=== PATIENT | male | born 1980 | race American Indian/Alaskan Native ===

== ENCOUNTER 2017-08-24 15:40 | Emergency (ER) | payer MEDICAID, OTHER ==
[2017-08-24 15:41] VITALS: BMI 22.3
[2017-08-24 15:57] VITALS: BP 126/84; PULSE 97; RESP 16; TEMP 98.6; O2SAT 100
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
== END 2017-08-24 18:00 | disposition home or self-care (01) ==
LOC: ED 15:40
DX: Z48.02 Encounter for removal of sutures (principal)

== ENCOUNTER 2018-01-26 21:04 | Emergency (ER) | payer OTHER ==
[2018-01-26 21:05] VITALS: BMI 22.3
[2018-01-26 21:14] VITALS: TEMP 98.1; O2SAT 100
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
[2018-01-27 00:03] VITALS: BP 118/78; PULSE 78; RESP 18
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
--- NOTE | 2018-01-27 09:55 | RAD ---
PROCEDURE: Radiographs of the left clavicle. HISTORY: pain r/o Fx. COMPARISON: None. FINDINGS: LEFT CLAVICLE: Acute fracture left clavicle. Major fracture fragments are anatomically aligned. JOINTS: Left acromioclavicular and glenohumeral joints are grossly unremarkable. SOFT TISSUES: Grossly unremarkable. OTHER FINDINGS: None. IMPRESSION: Acute left clavicular fracture. Concordant results with the preliminary interpretation rendered by the emergency department physician procedure.
== END 2018-01-27 00:02 | disposition home or self-care (01) ==
LOC: ED 21:04
DX: S02.81XA Fracture of other specified skull and facial bones, right side, initial encounter for closed fracture (principal); S42.022A Displaced fracture of shaft of left clavicle, initial encounter for closed fracture; Y04.0XXA Assault by unarmed brawl or fight, initial encounter; Y92.9 Unspecified place or not applicable
CPT/HCPCS: 70450; 73000; 73030; 96372; 99284; J1885

== ENCOUNTER 2018-02-14 16:42 | Emergency (ER) | payer MEDICAID, OTHER ==
[2018-02-14 16:43] VITALS: BMI 22.3
[2018-02-14 17:15] VITALS: RESP 18; TEMP 98; O2SAT 96
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
[2018-02-14 19:45] VITALS: BP 120/60; PULSE 89
--- NOTE | 2018-02-15 08:38 | RAD ---
PROCEDURE: Radiographs of the left clavicle. HISTORY: pain Hx. fracture COMPARISON: None. FINDINGS: LEFT CLAVICLE: There is a comminuted overlapping fracture of the mid left clavicle. JOINTS: Left acromioclavicular and glenohumeral joints are grossly unremarkable. SOFT TISSUES: Grossly unremarkable. OTHER FINDINGS: None. IMPRESSION: There is a comminuted overlapping fracture of the mid left clavicle.
== END 2018-02-14 19:40 | disposition home or self-care (01) ==
LOC: ED 16:42
DX: M25.512 Pain in left shoulder (principal); Z87.81 Personal history of (healed) traumatic fracture

== ENCOUNTER 2018-10-01 04:18 | Emergency (ER) | payer MEDICAID ==
[2018-10-01 04:22] VITALS: BMI 22.1
--- NOTE | 2018-10-01 04:48 | ED PDOC ---
Arrival/HPI - General Historian: Patient - History of Present Illness Narrative History of Present Illness (Text): 10/01/18 04:45 Samuel Pittman is a 38 year old male, whose past medical history includes alcohol abuse, who presents to the Emergency department brought in by EMS for alcohol intoxication tonight. Patient admits to drinking alcohol and states he also took Benadryl. Patient denies any fever, chills, chest pain, shortness of breath, nausea, vomiting, diarrhea, urinary symptoms, back pain, neck pain, headache, dizziness, or any other complaints. Symptom Onset: Gradual Symptom Course: Unchanged Activities at Onset: Light Context: Street <Goran Armstrong - Last Filed: 10/01/18 04:59> <Sam Suarez - Last Filed: 10/01/18 10:06> - General Chief Complaint: Cough, Cold, Congestion Time Seen by Provider: 10/01/18 04:37 Past Medical History - Provider Review Nursing Documentation Reviewed: Yes - Infectious Disease Hx of Infectious Diseases: None - Tetanus Immunization Tetanus Immunization: Up to Date - Past Medical History Past Medical History: No Previous - Cardiac Hx Hypertension: No - Pulmonary Hx Respiratory Disorders: No Hx Tuberculosis: No - Neurological Hx Neurological Disorder: No Hx Seizures: No - Hematological/Oncological Hx Cancer: No - Musculoskeletal/Rheumatological Hx Falls: No Other/Comment: skull fx. has plate in the skull. - Genitourinary/Gynecological Hx Sexually Transmitted Diseases: No - Psychiatric Hx Psychophysiologic Disorder: Yes Hx Anxiety: Yes Hx Bipolar Disorder: Yes Hx Depression: No Hx Substance Use: Yes (marijuana) - Past Surgical History Past Surgical History: No Previous - Surgical History Other/Comment: 2 plates on head - Anesthesia Hx Anesthesia: Yes Hx Anesthesia Reactions: No Hx Malignant Hyperthermia: No - Suicidal Assessment Feels Threatened In Home Enviroment: No <Goran Armstrong - Last Filed: 10/01/18 04:59> Family/Social History - Physician Review Nursing Documentation Reviewed: Yes Family/Social History: Unknown Family HX Smoking Status: Light Smoker < 10 Cigarettes Daily Hx Alcohol Use: Yes Hx Substance Use: Yes (marijuana) Substance used: marijuana Hx Substance Use Treatment: No <Goran Armstrong - Last Filed: 10/01/18 04:59> Allergies/Home Meds <Goran Armsrtong - Last Filed: 10/01/18 04:59> <ErickSam - Last Filed: 10/01/18 10:06> Allergies/Adverse Reactions: Allergies No Known Allergies Allergy (Verified 03/25/18 07:16) Review of Systems - Physician Review All systems were reviewed & negative as marked: Yes - Review of Systems Constitutional: Normal. absent: Fevers Eyes: Normal ENT: Normal Respiratory: Normal. absent: SOB, Cough Cardiovascular: Normal. absent: Chest Pain Gastrointestinal: Normal. absent: Abdominal Pain, Diarrhea, Nausea, Vomiting Genitourinary Male: Normal. absent: Dysuria, Frequency, Hematuria, Urinary Output Changes Musculoskeletal: Normal. absent: Back Pain, Neck Pain Skin: Normal Neurological: Normal Endocrine: Normal Hemo/Lymphatic: Normal Psychiatric: Normal <PattiGoran Filed: 10/01/18 04:59> Physical Exam Vital Signs Reviewed: Yes Vital Signs Temp Pulse Resp BP Pulse Ox 10/01/18 04:41 97.8 F 112 H 18 112/67 99 Temperature: Afebrile Blood Pressure: Normal Pulse: Regular Respiratory Rate: Normal Appearance: Positive for: Well-Appearing, Non-Toxic, Comfortable Pain Distress: None Mental Status: Positive for: Alert and Oriented X 3 - Systems Exam Head: Present: Atraumatic, Normocephalic Pupils: Present: PERRL Extroacular Muscles: Present: EOMI Conjunctiva: Present: Normal Mouth: Present: Moist Mucous Membranes Neck: Present: Normal Range of Motion Respiratory/Chest: Present: Clear to Auscultation, Good Air Exchange. No: Respiratory Distress, Accessory Muscle Use Cardiovascular: Present: Regular Rate and Rhythm, Normal S1, S2. No: Murmurs Abdomen: No: Tenderness, Distention, Peritoneal Signs Back: Present: Normal Inspection Upper Extremity: Present: Normal Inspection. No: Cyanosis, Edema Lower Extremity: Present: Normal Inspection. No: Edema Neurological: Present: GCS=15, CN II-XII Intact, Speech Normal Skin: Present: Warm, Dry, Normal Color. No: Rashes Psychiatric: Present: Alert, Oriented x 3, Normal Insight, Normal Concentration <PattiGoran Last Filed: 10/01/18 04:59> Vital Signs Temp Pulse Resp BP Pulse Ox 10/01/18 04:41 97.8 F 112 H 18 112/67 99 <Sam Suarez - Last Filed: 10/01/18 10:06> Medical Decision Making ED Course and Treatment: 10/01/18 04:45 Impression: 38 year old male brought in for alcohol intoxication. Plan: -- Reassess and disposition Progress Notes: <Goran Armstrong - Last Filed: 10/01/18 04:59> ED Course and Treatment: 10/01/18 09:22 Patient was turned over to me by , waiting for him to sober up. He is not yet ready for discharge. 10/01/18 10:05 Patient is awake and alert and up wandering about the emergency department. He is looking for his clothes and will take the light rail back to [place] <Sam Suarez - Last Filed: 10/01/18 10:06> - Scribe Statement The provider has reviewed the documentation as recorded by the [facility] [place] Lyn Provider Scribe Attestation: All medical record entries made by the Scribe were at my direction and personally dictated by me. I have reviewed the chart and agree that the record accurately reflects my personal performance of the history, physical exam, medical decision making, and the department course for this patient. I have also personally directed, reviewed, and agree with the discharge instructions and disposition. <Goran Armstrong - Last Filed: 10/01/18 04:59> Disposition/Present on Arrival - Present on Arrival History of DVT/PE: No History of Uncontrolled Diabetes: No Urinary Catheter: No History of Decub. Ulcer: No History Surgical Site Infection Following: None <Goran Armstrong - Last Filed: 10/01/18 04:59> - Present on Arrival Any Indicators Present on Arrival: No History of DVT/PE: No History of Uncontrolled Diabetes: No Urinary Catheter: No History of Decub. Ulcer: No History Surgical Site Infection Following: None - Disposition Have Diagnosis and Disposition been Completed?: Yes Disposition Time: 10:06 Patient Plan: Discharge <Sam Suarez - Last Filed: 10/01/18 10:06> - Disposition Diagnosis: Alcohol intoxication Disposition: HOME/ ROUTINE Condition: GOOD Discharge Instructions (ExitCare): Alcohol Use - When Is Drinking a Problem? Forms: [employer] ([employer])
[2018-10-01 10:00] VITALS: BP 104/68; PULSE 78; RESP 17; TEMP 98.3
[2018-10-01 11:23] VITALS: O2SAT 99
== END 2018-10-01 10:30 | disposition home or self-care (01) ==
LOC: ED 04:18
DX: F10.129 Alcohol abuse with intoxication, unspecified (principal)